=== PATIENT | female | born 1955 | race American Indian/Alaskan Native ===

== ENCOUNTER 2016-12-05 07:29 | Outpatient (CLI) | payer MEDICAID ==
--- NOTE | 2016-12-05 14:18 | Mammography Report ---
BILATERAL DIGITAL SCREENING MAMMOGRAM with CAD: 12/05/16 07:29:00 CLINICAL: Routine screening.Chronic lymphocytic leukemia. COMPARISON:None. FINDINGS: The breasts are heterogeneously dense, which may obscure small masses.A right [id number] obscures a portion of the right axillary tail. No mass, architectural distortion or suspicious calcifications. IMPRESSION: No mammographic evidence of malignancy. BI-RADS CATEGORY: 1 - - Negative RECOMMENDATION: Routine mammographic screening in one year. COMMENT: Patient follow-up letters are generated by our [employer] application.
== END 2016-12-05 07:30 | disposition home or self-care (01) ==
LOC: MAMMO 07:29
PROVIDERS: ATTEND Internal Medicine Hematology & Oncology
DX: Z12.13 Encounter for screening for malignant neoplasm of small intestine (principal)
CPT/HCPCS: 77067; G0202

== ENCOUNTER 2017-07-25 08:36 | Outpatient (CLI) | payer MEDICAID ==
[2017-07-25 09:52] LABS: Blood Urea Nitrogen 8 mg/dL (7-17)
--- NOTE | 2017-07-25 15:33 | Cat Scan Report ---
CT NECK WITH CONTRAST: HISTORY: Chronic lymphocytic leukemia of B-cell type. TECHNIQUE: Helical CT following IV contrast. Sagittal and coronal reformatted images. FINDINGS: The parotid and submandibular glands are normal. The carotid sheaths are intact. There is no evidence of adenopathy within the neck. The thyroid gland is normal. The glottic structures are normal. The airway is patent. Strap musculature is unremarkable. Hyoid bone and thyroid cartilage are intact. IMPRESSION: Unremarkable CT neck. No cervical adenopathy or recurrent mass is identified.
--- NOTE | 2017-07-25 15:35 | Cat Scan Report ---
CT CHEST WITH CONTRAST: HISTORY: Chronic lymphocytic leukemia of B-cell type. COMPARISON: 10/07/16. TECHNIQUE: Helical CT in 1.25mm intervals following IV contrast. Sagittal and coronal reformatted images. FINDINGS: Thyroid gland: Normal. Tracheobronchial tree: Normal. Esophagus: Normal. Heart: Normal. Pericardium: Normal. Mediastinum: Normal. Lung Ackerman: Normal. Pleural Spaces: Normal. Musculoskeletal: Normal. IMPRESSION: Unremarkable CT chest with contrast. No evidence for disease recurrence or metastasis.
== END 2017-07-25 08:37 | disposition home or self-care (01) ==
LOC: CT 08:36
PROVIDERS: ATTEND Internal Medicine Hematology & Oncology
DX: C91.10 Chronic lymphocytic leukemia of B-cell type not having achieved remission (principal); Z79.899 Other long term (current) drug therapy
CPT/HCPCS: 36415; 70491; 71260; 74177; 82565; 84520; Q9967

== ENCOUNTER 2017-12-06 15:01 | Outpatient (CLI) | payer MEDICAID ==
--- NOTE | 2017-12-07 10:32 | Mammography Report ---
BILATERAL DIGITAL SCREENING MAMMOGRAM with CAD: 12/06/17 15:01:00 CLINICAL: Routine screening. COMPARISON:12/05/16 FINDINGS: The breasts are heterogeneously dense, which may obscure small masses. No mass, architectural distortion or suspicious calcifications. IMPRESSION: No mammographic evidence of malignancy. BI-RADS CATEGORY: 1 - - Negative RECOMMENDATION: Routine mammographic screening in one year. COMMENT: Patient follow-up letters are generated by our [employer] application.
== END 2017-12-06 15:02 | disposition home or self-care (01) ==
LOC: MAMMO 15:01
PROVIDERS: ATTEND Internal Medicine Hematology & Oncology
DX: Z12.31 Encounter for screening mammogram for malignant neoplasm of breast (principal)
CPT/HCPCS: 77067

== ENCOUNTER 2018-12-06 10:34 | Outpatient (CLI) | payer MEDICAID ==
--- NOTE | 2018-12-06 13:11 | Mammography Report ---
BILATERAL DIGITAL SCREENING MAMMOGRAM with CAD: 12/06/18 10:34:00 CLINICAL: Routine screening.Chronic lymphocytic leukemia. COMPARISON:12/06/17 FINDINGS: The breasts are heterogeneously dense, which may obscure small masses. A left vocal asymmetry at 12 o'clock requires additional imaging.No architectural distortion or suspicious calcifications. The right breast is negative. IMPRESSION: Left asymmetry requiring further workup. BI-RADS CATEGORY: 0 -- Additional Imaging Evaluation Required RECOMMENDATION: Recall for left LM and spot magnification MLO and CC views and left breast ultrasound if needed. COMMENT: 1. Dense breast tissue, i.e., adenosis, fibrocystic changes, etc., may obscure an underlying neoplasm. 2. Approximately 10% of cancers are not detected with mammography. 3. A negative mammography report should not delay biopsy if a clinically suspicious mass is present. COMMENT: Patient follow-up letters are generated via our [employer] application.
== END 2018-12-06 10:35 | disposition home or self-care (01) ==
LOC: MAMMO 10:34
PROVIDERS: ATTEND Internal Medicine Hematology & Oncology
DX: Z12.31 Encounter for screening mammogram for malignant neoplasm of breast (principal)
CPT/HCPCS: 77067

== ENCOUNTER 2018-12-26 12:47 | Outpatient (CLI) | payer MEDICAID ==
--- NOTE | 2018-12-26 13:31 | Mammography Report ---
LEFT DIGITAL DIAGNOSTIC MAMMOGRAM : 12/26/18 12:47:00 CLINICAL: Recalled for asymmetry. COMPARISON:12/06/18 screening FINDINGS: Additional mammographic views were performed and are negative. IMPRESSION: Negative Mammogram. BI-RADS CATEGORY: 1 -- Negative RECOMMENDATION: Routine mammographic screening in one year. COMMENT: 1. Dense breast tissue, i.e., adenosis, fibrocystic changes, etc., may obscure an underlying neoplasm. 2. Approximately 10% of cancers are not detected with mammography. 3. A negative mammography report should not delay biopsy if a clinically suspicious mass is present. COMMENT: Patient follow-up letters are generated via our [employer] application.
== END 2018-12-26 12:48 | disposition home or self-care (01) ==
LOC: US 12:47
PROVIDERS: ATTEND Internal Medicine Hematology & Oncology
DX: R92.8 Other abnormal and inconclusive findings on diagnostic imaging of breast (principal)

== ENCOUNTER 2019-07-04 16:51 | Emergency (ER) | payer MEDICAID ==
[2019-07-04 17:51] VITALS: BP 161/87
[2019-07-04] MEDS ORDERED: valACYclovir 500 MG TAB PO ONE (20:08)
[2019-07-04] MEDS ORDERED: LIDOCAINE JELLY (2%) 5 ML TOPICAL TP ONE (20:08)
[2019-07-04] MEDS ORDERED: HYDROcodone/ACETAMINOPHEN 5-325 MG TAB PO ONE (20:08)
[2019-07-04 20:28] LABS: Basophils % (Auto) 0.5 % (0.0-1.8); Hematocrit 37.1 % (30.3-42.9); Hemoglobin 12.5 gm/dl (10.1-14.3); Lymphocytes # (Auto) 1.4 K/mm3 (1.2-5.4); Lymphocytes % (Auto) 16.6 % (13.4-35.0); Mean Corpuscular HGB Conc 34 % (30-34); Mean Corpuscular Volume 93 fl (79-97); Monocytes # (Auto) 0.1 K/mm3 (0.0-0.8); Monocytes % (Auto) 1.8 % (0.0-7.3); Platelet Count 413 K/mm3 (140-440); Red Blood Count 3.98 M/mm3 (3.65-5.03); Red Cell Distribution Width 14.1 % (13.2-15.2)
[2019-07-04 20:44] LABS: BUN/Creatinine Ratio 14; Blood Urea Nitrogen 10 mg/dL (7-17); Calcium 9.5 mg/dL (8.4-10.2); Hemolysis Index 31
--- NOTE | 2019-07-04 20:56 | Emergency Department Report ---
ED Rash HPI - HPI Chief Complaint: Skin Rash Stated Complaint: SHINGLES/LEUKEMIA Time Seen by Provider: 07/04/19 19:51 Duration: 3 Days Location: Abdomen Suspected Cause: Unknown (shingles ) Rash Symptoms: Yes Itching, Yes Blistering, No Facial Swelling, No Tongue/Oral S welling, No Breathing Difficulties, No Choking Sensation, No Wheezing/Dyspnea, No Peeling, No Fever, No Lightheaded, No Malaise, No Myalgias Severity: moderate (uterus is) ED Review of Systems ROS: Stated complaint: SHINGLES/LEUKEMIA Other details as noted in HPI Constitutional: denies: chills, fever Eyes: denies: eye pain, eye discharge, vision change ENT: denies: ear pain, throat pain Respiratory: denies: cough, shortness of breath, wheezing Cardiovascular: denies: chest pain, palpitations Endocrine: no symptoms reported Gastrointestinal: denies: abdominal pain, nausea, diarrhea Genitourinary: denies: urgency, dysuria, discharge Musculoskeletal: denies: back pain, joint swelling, arthralgia Skin: rash (rash abd wall and flank ) Neurological: denies: headache, weakness, paresthesias Psychiatric: denies: anxiety, depression Hematological/Lymphatic: denies: easy bleeding, easy bruising ED Past Medical Hx - Past Medical History Previous Medical History?: Yes Hx Diabetes: No Hx Liver Disease: No Hx of Cancer: Yes (leukemia) Hx Arthritis: Yes Additional medical history: Fibomyalgia - Surgical History Past Surgical History?: Yes Additional Surgical History: Back. bone marrow. port to right chest wall - Social History Smoking Status: Never Smoker Substance Use Type: None - Medications Home Medications: Home Medications Medication Instructions Recorded Confirmed Last Taken Type Amitriptyline [Elavil] 75 mg PO QHS 03/16/16 03/24/16 03/22/16 History tiZANidine [Zanaflex 4mg TAB] 1 tab PO BID 03/16/16 03/24/16 03/22/16 History HYDROcodone/APAP 5-325 [[place] 1 each PO Q6HR PRN #12 tablet 07/04/19 Unknown Rx 5-325 mg TAB] Lidocaine [Anecream5] 1 applicatio TP QID PRN #1 tube 07/04/19 Unknown Rx Valacyclovir HCl [Valtrex] 1,000 mg PO BID #20 tablet 07/04/19 Unknown Rx Rash Exam - Exam General: Vital signs noted. No distress. Alert and acting appropriately. HEENT: No Periorbital Edema, No Conjuctival Injection, No Chemosis, No Perioral Edema, No Tongue Edema, No Uvular Edema, No Compromised Airway, No Drooling Lungs: Yes Good Air Exchange (Normal Breath Sounds), No Wheezes, No Ronchi, No Stridor, No Cough, No Labored Respirations, No Retractions, No Use of Accessory Muscles, No Other Abnormal Lung Sounds Heart: Yes Regular, No Murmur Skin: Yes Urticarial Rash, Yes Excoriations, Yes Tenderness, Yes Erythema, Yes Encrustations, No Maculopapular Rash, No Morbilliform rash, No Bulla(e), No Weeping, No Edema Other: Positive: Abdomen Normal, Neurologic Normal, Musculoskeletal Normal ED Course Vital Signs 07/04/19 17:49 Temperature 98.8 F Pulse Rate 87 Respiratory 16 Rate Blood Pressure 161/87 [Left] O2 Sat by Pulse 96 Oximetry ED Medical Decision Making - Lab Data Result diagrams: 07/04/19 19:26 07/04/19 19:26 - Medical Decision Making this is straight forward shingles outbreak, symptoms are relieved with valtrex and hydrocodone plan refill same follow up with pcp Dr Felix, and oncology Dr. Leon, pt verbalizes agreement and understanding of same. pt dc'to home in stable condition after completion of dinner meal, Debbie burgers, fries, and coke , pt is eating at bedside at this time. Critical care attestation.: If time is entered above; I have spent that time in minutes in the direct care of this critically ill patient, excluding procedure time. ED Disposition Clinical Impression: Shingles rash Qualifiers: Herpes zoster complications: unspecified herpes zoster complication Qualified Code(s): B02.8 - Zoster with other complications Disposition: DC-01 TO HOME OR SELFCARE Is pt being admited?: No Does the pt Need Aspirin: No Condition: Stable Instructions: Herpes Zoster (ED) Prescriptions: Lidocaine [Anecream5] 1 applicatio TP QID PRN #1 tube PRN Reason: pain HYDROcodone/APAP 5-325 [[place] 5-325 mg TAB] 1 each PO Q6HR PRN #12 tablet PRN Reason: Pain Valacyclovir HCl [Valtrex] 1,000 mg PO BID #20 tablet Referrals: NICOLA FELIX MD [Referring] - 2-3 Days Forms: Work/School Release Form(ED) Time of Disposition: 21:05
== END 2019-07-04 21:21 | disposition home or self-care (01) ==
LOC: ED 16:51
DX: B02.9 Zoster without complications (principal); M19.90 Unspecified osteoarthritis, unspecified site; Z85.6 Personal history of leukemia; Z79.899 Other long term (current) drug therapy
CPT/HCPCS: 36415; 80048; 85025

== ENCOUNTER 2019-08-25 20:48 | Emergency (ER) | payer MEDICAID ==
[2019-08-25 21:22] VITALS: BP 138/64
[2019-08-25] MEDS ORDERED: ACETAMINOPHEN 325 MG TAB PO ONE (21:42)
--- NOTE | 2019-08-25 22:26 | Emergency Department Report ---
Chief Complaint: Altered Mental Status Stated Complaint: AMS Time Seen by Provider: 08/25/19 22:07 - HPI History of Present Illness: Patient is a 63-year-old female who has CLL who is presenting with fever. Patient's granddaughter went to see her today and stated that her. She was very confused. She was having a difficult time finishing sentences and she looked lethargic. Patient admits to having a decreased appetite with some headache starting today. Patient currently is stating that she wants to leave. She does not want to have blood drawn because she is worried that the hospital will cause unnecessary infections. Patient states she would prefer to see her oncologist tomorrow in [place]. - ROS Review of Systems: All other systems are reviewed and are negative - Exam Vital Signs: Vital Signs 08/25/19 08/25/19 21:21 21:48 Temperature 102.1 F H Pulse Rate 91 H Respiratory 16 20 Rate Blood Pressure 138/64 [Left] O2 Sat by Pulse 95 Oximetry Physical Exam: Patient's most part of her refusing physical exam although she is alert and oriented 3 inches able to ambulate. She is diaphoretic and she has a temperature of 102.1. Blood pressure heart rate of within normal limits. Patient would not agree to further physical exam. MSE screening note: Focused history and physical exam performed. Due to findings the following was ordered: ED Medical Decision Making - Medical Decision Making Patient has a history of CLL and does meet sepsis criteria. Patient states that she does not want her port accessed and is not agreed to peripheral lines. She states she does not want to have blood work done here and does not want to receive any treatment. She does state she will prefer to see her primary care physician. She states that she is prone to infections and does not want to have any hospital borne infections. I did speak to her at length as well as her daughter and granddaughter that the patient with 102 temperature was immunocompromised likely has an infection already and he will be necessary to treat her as quickly as possible. Patient voices understanding of this was states that she does not want to stay. Patient states she knows where she is knows her full name and birthday and the patient signed out AGAINST MEDICAL ADVICE. ED Disposition for MSE Clinical Impression: Fever Disposition: DC- LEFT AGAINST MED ADVICE Is pt being admited?: No Does the pt Need Aspirin: No Condition: Stable Time of Disposition: 22:28
== END 2019-08-25 22:21 | disposition left against medical advice (07) ==
LOC: ED 20:48
DX: R50.9 Fever, unspecified (principal)

== ENCOUNTER 2021-08-11 16:20 | Emergency (ER) | payer MEDICAID ==
[2021-08-11 17:12] VITALS: BP 119/57
--- NOTE | 2021-08-11 18:15 | Emergency Department Report ---
ED General Adult HPI - General Chief complaint: Wound/Laceration Stated complaint: WOUND ON LEG Time Seen by Provider: 08/11/21 18:02 Source: patient Mode of arrival: Ambulatory Limitations: No Limitations - History of Present Illness Initial comments: Patient is 65 years old female with history of CLL. Patient presented to the ER complaining of a lesion to the posterior right thigh just above the knee. Patient stated that he started 3 days ago. She does not remember any injury. No fever or chills. - Related Data Home Medications Medication Instructions Recorded Confirmed Last Taken Amitriptyline [Elavil] 75 mg PO QHS 03/16/16 03/24/16 03/22/16 tiZANidine [Zanaflex 4mg TAB] 1 tab PO BID 03/16/16 03/24/16 03/22/16 Previous Rx's Medication Instructions Recorded Last Taken Type HYDROcodone/APAP 5-325 [[place] 1 each PO Q6HR PRN #12 tablet 07/04/19 Unknown Rx 5-325 mg TAB] Lidocaine [Anecream5] 1 applicatio TP QID PRN #1 tube 07/04/19 Unknown Rx Valacyclovir HCl [Valtrex] 1,000 mg PO BID #20 tablet 07/04/19 Unknown Rx Allergies Allergy/AdvReac Type Severity Reaction Status Date / Time No Known Allergies Allergy Verified 08/11/21 17:12 ED Review of Systems ROS: Stated complaint: WOUND ON LEG Other details as noted in HPI Comment: All other systems reviewed and negative Constitutional: denies: chills, fever Respiratory: denies: cough, shortness of breath, SOB with exertion Cardiovascular: denies: chest pain, palpitations Gastrointestinal: denies: abdominal pain, nausea, vomiting Skin: lesions ED Past Medical Hx - Past Medical History Hx Diabetes: No Hx Liver Disease: No Hx Arthritis: Yes Additional medical history: Fibomyalgia - Surgical History Additional Surgical History: Back. bone marrow. port to right chest wall - Social History Smoking Status: Never Smoker Substance Use Type: None - Medications Home Medications: Home Medications Medication Instructions Recorded Confirmed Last Taken Type Amitriptyline [Elavil] 75 mg PO QHS 03/16/16 03/24/16 03/22/16 History tiZANidine [Zanaflex 4mg TAB] 1 tab PO BID 03/16/16 03/24/16 03/22/16 History HYDROcodone/APAP 5-325 [[place] 1 each PO Q6HR PRN #12 tablet 07/04/19 Unknown Rx 5-325 mg TAB] Lidocaine [Anecream5] 1 applicatio TP QID PRN #1 tube 07/04/19 Unknown Rx Valacyclovir HCl [Valtrex] 1,000 mg PO BID #20 tablet 07/04/19 Unknown Rx ED Physical Exam - General Limitations: No Limitations General appearance: alert, in no apparent distress - Head Head exam: Present: atraumatic, normocephalic, normal inspection - Eye Eye exam: Present: normal appearance, PERRL - ENT ENT exam: Present: normal exam, normal orophraynx, mucous membranes moist - Neck Neck exam: Present: normal inspection, full ROM. Absent: tenderness, meningismus - Respiratory Respiratory exam: Present: normal lung sounds bilaterally - Cardiovascular Cardiovascular Exam: Present: regular rate, normal rhythm, normal heart sounds - GI/Abdominal GI/Abdominal exam: Present: soft, normal bowel sounds. Absent: distended, tenderness, guarding, rebound, rigid, organomegaly, mass, bruit, pulsatile mass, hernia - Extremities Exam Extremities exam: Present: other (1 cm time 1 cm lesion to the posterior thigh. Look like ulcer with mild cellulitis.) - Back Exam Back exam: Present: normal inspection. Absent: CVA tenderness (R), CVA t enderness (L) - Neurological Exam Neurological exam: Present: alert, oriented X3, CN II-XII intact - Psychiatric Psychiatric exam: Present: normal mood - Skin Skin exam: Present: warm ED Course Vital Signs 08/11/21 17:11 Temperature 97.8 F Pulse Rate 88 Respiratory 20 Rate Blood Pressure 119/57 [Left] O2 Sat by Pulse 97 Oximetry ED Medical Decision Making - Medical Decision Making Patient is 65 years old female with history of CLL. Patient presented to the ER complaining of a lesion to the posterior right thigh just above the knee. Patient stated that he started 3 days ago. She does not remember any injury. No fever or chills. The lesion on the posterior thigh looks like an ulcer with mild cellulitis. Patient given prescription for Keflex and advised to follow-up with her primary doctor in the next 2 to 3 days and to return to the ER if he develop any new symptoms. Critical care attestation.: If time is entered above; I have spent that time in minutes in the direct care of this critically ill patient, excluding procedure time. ED Disposition Clinical Impression: Wound infection Disposition: 01 HOME / SELF CARE / HOMELESS Is pt being admited?: No Condition: Stable Instructions: Wound Infection Referrals: PRIMARY CARE, [Referring] - 3-5 Days
== END 2021-08-11 18:19 | disposition home or self-care (01) ==
LOC: ED 16:20
DX: L08.9 Local infection of the skin and subcutaneous tissue, unspecified (principal)
CPT/HCPCS: 99282

== ENCOUNTER 2021-10-28 04:57 | Emergency (ER) | payer MEDICAID ==
[2021-10-28] MEDS ORDERED: ONDANSETRON 4 MG ODT TAB PO ONE (06:15)
[2021-10-28] MEDS ORDERED: oxyCODONE /ACETAMINOPHEN 5-325MG TAB PO ONE ×2 (06:16)
[2021-10-28] MEDS ORDERED: diazePAM 2 MG TAB PO ONE (06:16)
--- NOTE | 2021-10-28 06:19 | Emergency Department Report ---
ED General Adult HPI - General Chief complaint: Back Pain/Injury Stated complaint: BACK PAIN Time Seen by Provider: 10/28/21 05:58 Source: patient, EMS Mode of arrival: Stretcher Limitations: No Limitations - History of Present Illness Initial comments: Patient presents to the emergency department the chief complaint of left-sided back pain that started this morning. Patient states she got out of bed to go to the bathroom when she felt her back catch. States she was not able get off the floor and had to pull herself up using a door frame. Patient does have a history of CLL. Patient is actively being treated for the after mentioned cancer. Patient denies any chest pain, shortness breath, or abdominal pain. Patient denies loss of consciousness or hitting her head. -: Sudden Location: back Radiation: back Severity scale (0 -10): 8 Quality: sharp, constant Consistency: constant Improves with: none Worsens with: movement Associated Symptoms: denies other symptoms Treatments Prior to Arrival: none - Related Data Home Medications Medication Instructions Recorded Confirmed Last Taken Amitriptyline [Elavil] 75 mg PO QHS 03/16/16 03/24/16 03/22/16 tiZANidine [Zanaflex 4mg TAB] 1 tab PO BID 03/16/16 03/24/16 03/22/16 Previous Rx's Medication Instructions Recorded Last Taken Type HYDROcodone/APAP 5-325 [[place] 1 each PO Q6HR PRN #12 tablet 07/04/19 Unknown Rx 5-325 mg TAB] Lidocaine [Anecream5] 1 applicatio TP QID PRN #1 tube 07/04/19 Unknown Rx Valacyclovir HCl [Valtrex] 1,000 mg PO BID #20 tablet 07/04/19 Unknown Rx cephALEXin [Keflex] 500 mg PO Q8HR #28 cap 08/11/21 Unknown Rx Cyclobenzaprine HCl [Flexeril 5 MG 5 mg PO BID PRN #10 tab 10/28/21 Unknown Rx TAB] HYDROcodone/APAP 5-325 [[place] 1 each PO Q6HR PRN #24 tablet 10/28/21 Unknown Rx 5/325] Ondansetron [Zofran Odt] 4 mg PO Q4HR PRN #20 tab.rapdis 10/28/21 Unknown Rx Sennosides/Docusate Sodium [Senna 1 each PO DAILY #20 10/28/21 Unknown Rx Plus 8.6-50 mg Tablet] Allergies Allergy/AdvReac Type Severity Reaction Status Date / Time No Known Allergies Allergy Verified 08/11/21 17:12 ED Review of Systems ROS: Stated complaint: BACK PAIN Other details as noted in HPI Comment: All other systems reviewed and negative Constitutional: denies: chills, fever Eyes: denies: eye pain, eye discharge, vision change ENT: denies: ear pain, throat pain Respiratory: denies: cough, shortness of breath, wheezing Cardiovascular: denies: chest pain, palpitations Endocrine: no symptoms reported Gastrointestinal: denies: abdominal pain, nausea, diarrhea Genitourinary: denies: urgency, dysuria, discharge Musculoskeletal: back pain. denies: joint swelling, arthralgia Skin: denies: rash, lesions Neurological: denies: headache, weakness, paresthesias Psychiatric: denies: anxiety, depression Hematological/Lymphatic: denies: easy bleeding, easy bruising ED Past Medical Hx - Past Medical History Previous Medical History?: Yes Hx Diabetes: No Hx Liver Disease: No Hx of Cancer: Yes (CLL) Hx Arthritis: Yes Additional medical history: Fibomyalgia. chronic back pain - Surgical History Past Surgical History?: Yes Additional Surgical History: Back. bone marrow. port to right chest wall - Social History Smoking Status: Never Smoker Substance Use Type: None - Medications Home Medications: Home Medications Medication Instructions Recorded Confirmed Last Taken Type Amitriptyline [Elavil] 75 mg PO QHS 03/16/16 03/24/16 03/22/16 History tiZANidine [Zanaflex 4mg TAB] 1 tab PO BID 03/16/16 03/24/16 03/22/16 History HYDROcodone/APAP 5-325 [[place] 1 each PO Q6HR PRN #12 tablet 07/04/19 Unknown Rx 5-325 mg TAB] Lidocaine [Anecream5] 1 applicatio TP QID PRN #1 tube 07/04/19 Unknown Rx Valacyclovir HCl [Valtrex] 1,000 mg PO BID #20 tablet 07/04/19 Unknown Rx cephALEXin [Keflex] 500 mg PO Q8HR #28 cap 08/11/21 Unknown Rx Cyclobenzaprine HCl [Flexeril 5 MG 5 mg PO BID PRN #10 tab 10/28/21 Unknown Rx TAB] HYDROcodone/APAP 5-325 [[place] 1 each PO Q6HR PRN #24 tablet 10/28/21 Unknown Rx 5/325] Ondansetron [Zofran Odt] 4 mg PO Q4HR PRN #20 tab.rapdis 10/28/21 Unknown Rx Sennosides/Docusate Sodium [[place]enna 1 each PO DAILY #20 10/28/21 Unknown Rx Plus 8.6-50 mg Tablet] ED Physical Exam - General Limitations: No Limitations General appearance: alert, in no apparent distress - Head Head exam: Present: atraumatic, normocephalic - Eye Eye exam: Present: normal appearance, PERRL, EOMI - ENT ENT exam: Present: mucous membranes moist - Neck Neck exam: Present: normal inspection - Respiratory Respiratory exam: Present: normal lung sounds bilaterally. Absent: respiratory distress - Cardiovascular Cardiovascular Exam: Present: regular rate, normal rhythm. Absent: systolic murmur, diastolic murmur, rubs, gallop - GI/Abdominal GI/Abdominal exam: Present: soft, normal bowel sounds. Absent: distended, tenderness - Extremities Exam Extremities exam: Present: normal inspection - Back Exam Back exam: Present: tenderness, other (Tender to palpation of the parathoracic and paralumbar region. Patient does have point tenderness to the left side paralumbar region with mild tenderness to the midline of the L-spine.) - Neurological Exam Neurological exam: Present: alert, oriented X3 - Psychiatric Psychiatric exam: Present: normal affect, normal mood - Skin Skin exam: Present: warm, dry, intact, normal color. Absent: rash ED Course Vital Signs 10/28/21 10/28/21 10/28/21 05:07 05:14 05:19 Temperature 98.7 F 98.7 F Pulse Rate 72 71 67 Respiratory 18 15 22 Rate Blood Pressure 136/61 Blood Pressure 136/61 [Left] O2 Sat by Pulse 99 100 99 Oximetry ED Medical Decision Making - Radiology Data Radiology results: report reviewed - Medical Decision Making Imaging reviewed and results discussed with patient Patient had relief of symptoms with medications given in the ED Critical care attestation.: If time is entered above; I have spent that time in minutes in the direct care of this critically ill patient, excluding procedure time. ED Disposition Clinical Impression: Lumbar spine strain, Degenerative joint disease (DJD) of lumbar spine Disposition: HOME / SELF CARE / HOMELESS Is pt being admited?: No Does the pt Need Aspirin: No Condition: Stable Instructions: Lumbar Sprain, Muscle Strain, [id number] Additional Instructions: return if worse Prescriptions: Cyclobenzaprine HCl [Flexeril 5 MG TAB] 5 mg PO BID PRN #10 tab PRN Reason: Spasms HYDROcodone/APAP 5-325 [[place] 5/325] 1 each PO Q6HR PRN #24 tablet PRN Reason: Pain Sennosides/Docusate Sodium [Senna Plus 8.6-50 mg Tablet] 1 each PO DAILY #20 Ondansetron [Zofran Odt] 4 mg PO Q4HR PRN #20 tab.rapdis PRN Reason: Nausea Referrals: PRIMARY CARE, [Primary Care Provider] - 3-5 Days MAIDA HAYS MD [Staff Physician] - 3-5 Days Time of Disposition: 07:38
--- NOTE | 2021-10-28 07:09 | XRay Report ---
THORACIC SPINE 2 VIEWS INDICATION / CLINICAL INFORMATION: back pain. COMPARISON: None available. FINDINGS: BONES / JOINT(S): No acute fracture or subluxation. Mild osteopenia and scattered DDD. SOFT TISSUES: No significant abnormality. ADDITIONAL FINDINGS: None. Signer Name: Fermin Beckwith MD Signed: 10/28/2021 7:04 AM Workstation Name: [id number]
--- NOTE | 2021-10-28 07:10 | XRay Report ---
LUMBAR SPINE 3 VIEWS INDICATION / CLINICAL INFORMATION: pain s/p injury. COMPARISON: None available. FINDINGS: BONES / JOINT(S): No acute fracture or subluxation. Underlying osteopenia and mild DDD greatest at L5 -S1. SOFT TISSUES: Calcified uterine fibroids. ADDITIONAL FINDINGS: None. Signer Name: Fermin Beckwith MD Signed: 10/28/2021 7:05 AM Workstation Name: [id number]
[2021-10-28 08:18] VITALS: BP 121/61
== END 2021-10-28 08:21 | disposition home or self-care (01) ==
LOC: ED 04:57
DX: S39.012A Strain of muscle, fascia and tendon of lower back, initial encounter (principal); M51.36 Other intervertebral disc degeneration, lumbar region; X58.XXXA Exposure to other specified factors, initial encounter; Y93.89 Activity, other specified; Y92.89 Other specified places as the place of occurrence of the external cause; Y99.8 Other external cause status
CPT/HCPCS: 72070; 72100; 99283; J3490; Q0162